=== PATIENT | male | born 1980 | race Hispanic/Latino ===

== ENCOUNTER 2019-12-20 11:29 | Inpatient (IN) | payer OTHER, SELFPAY ==
[~2019-12-20 11:29] MED LIST: Iopamidol 370 76% 100 ML VIAL ONE; Iopamidol 370 76% 50 ML VIAL FS ONE
[2019-12-20 11:54] LABS: #Basophils 0.1 thou/uL (0.0-0.2); #Lymphocytes 1.4 thou/uL (1.20-3.40); #Monocytes 0.6 thou/uL (0.11-0.59); #Neutrophils 13.8 thou/uL (1.40-6.50); %Basophils 0.4 % (0.0-1.0); %Eosinophils 0.2 % (0.0-10.0); %Lymphocytes 8.8 % (21.0-51.0); %Monocytes 3.5 % (0.0-10.0); %Neutrophils 87.1 % (42.0-75.0); Hemoglobin 15.7 g/dL (14.0-18.0); Mean Corpuscular HGB CONC 34.7 g/dL (32.0-36.0); Mean Corpuscular Hemoglobin 30.2 pg (27.0-31.0); Mean Corpuscular Volume 87.1 fL (78.0-98.0); Mean Platelet Volume 9.6 fL (7.4-10.4); Platelet Count 328 thou/uL (130-400); RBC Distribution Width 11.7 % (11.5-14.5); White Blood Cell (WBC) Count 15.9 thou/uL (4.8-10.8)
--- NOTE | 2019-12-20 12:17 | RAD ---
XR Chest 1 View Portable HISTORY: Chest pain COMPARISON: None FINDINGS: The heart size is normal. The lungs are well expanded without focal areas of consolidation, pneumothorax or pleural effusions. IMPRESSION: No radiographic evidence of acute cardiopulmonary process.
[2019-12-20 12:27] LABS: ALT (SGPT) 31 U/L (8-55); AST (SGOT) 17 U/L (5-34); Albumin 4.4 g/dL (3.5-5.0); Alkaline Phosphatase 133 U/L (40-110); Anion Gap 17 mmol/L (10-20); BUN (Urea Nitrogen) 16 mg/dL (8.9-20.6); Bilirubin, Total 0.5 mg/dL (0.2-1.2); Calc. Creatinine Clearance 0 mL/min (70-130); Calcium 9.3 mg/dL (7.8-10.44); Carbon Dioxide 20 mmol/L (22-29); Chloride 100 mmol/L (98-107); Estimated GFR-MDRD 57; Globulin 3.6 g/dL (2.4-3.5); Glucose 533 mg/dL (70-105); Potassium 4.3 mmol/L (3.5-5.1); Sodium 133 mmol/L (136-145)
[2019-12-20] MEDS ORDERED: Ondansetron PF 4 MG/2 ML Vial ONE (12:34)
[2019-12-20 12:43] LABS: CKMB 1.8 ng/mL (0-6.6)
[2019-12-20] MEDS ORDERED: Enoxaparin Sodium 100 MG/ML SYRINGE ONE (13:12)
--- NOTE | 2019-12-20 13:43 | PDOC.FPRHP ---
- History of Present Illness Chief Complaint: chest pain History of Present Illness: This is a 39yo M with no PMH who presents to the ER with a CC of chest pain. He reports that starting this morning around 830am he had an "episode" of chest pain. He was going to try to tough it out but subsequently had 3 more episodes of chest pain. He reports that the chest pain was located in the middle of his chest, pressure like, and radiated to both arms. He reports palpitations, nausea, and headache during the episodes. He also endorses feel warm and sweaty all over. He reports that they did resolve somewhat between episodes and became worse with each episode. He did get nitro by EMS and reports that this improved his pain. He was laying down in the bed of his truck when the first episode of chest pain occurred. 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 He does not regularly see a doctor, but he has gotten his regular physicals for driving a truck and they have always been normal. Recently he injured the tendons in his right foot when a cow stepped on it and is wearing a boot. He did not have surgery at that time. In EMS his BG was found to be 500. He reports no hx of DM. He denies any increased thirst or urination. ED Course: 1L NS and Nitro in EMS. 2L NS and 1mg/kg of lovenox in ED. - Allergies/Adverse Reactions Allergies Allergy/AdvReac Type Severity Reaction Status Date / Time No Known Allergies Allergy Verified 12/20/19 17:02 - Home Medications Medication Instructions Recorded Confirmed Type No Known 12/20/19 12/20/19 History - History PMHx: none PSHx: none FHx: non contributory - no DM or CAD known Social: remote drug and alcohol use; hx of occasional tobacco use; no current drug or alcohol use. - Review of Systems General: reports: fatigue. denies: fever/chills, weight/appetite/sleep changes , night sweats Eyes: denies: vision changes ENT: denies: nasal congestion, rhinorrhea Respiratory: reports: shortness of breath. denies: cough, congestion, exercise intolerance Cardiovascular: reports: chest pain, palpitation. denies: edema Gastrointestinal: reports: nausea. denies: vomiting, diarrhea, constipation, abdominal pain Genitourinary: denies: polyuria Skin: denies: rashes Musculoskeletal: denies: pain, tenderness, stiffness, swelling Neurological: denies: numbness, syncope, seizure, weakness Psychological: denies: anxiety - Vital signs BP: 118/69 HR: 77 RR: 22 Tmax: 98.6 Pox: 100% on RA Wt: 105kg - Physical Exam Constitutional: NAD, awake, alert and oriented, well developed HEENT: normocephalic and atraumatic, PERRLA, EOMI, no scleral icterus, grossly normal vision, grossly normal hearing, MMM, good dention Neck: supple, FROM, trachea midline, no JVD Chest: no-tender to palpation, no lesions Heart: RRR, normal S1/S2, no murmurs/rubs/gallops, pulses present, no edema Lungs: CTAB, no respiratory distress, good air movement, no rales/rhonchi, no wheezing, no retractions Abdomen: soft, non-tender, bowel sounds present Musculoskeletal: normal structure Neurological: no focal deficit Skin: no rash/lesions, good turgor, capillary refill <2 seconds, other (tattoos present, done in residential) Heme/Lymphatic: no unusual bruising or bleeding Psychiatric: normal mood and affect FMR H&P: Results - Labs Result Diagrams: 12/20/19 11:43 12/20/19 11:43 Lab results: WBC 15.9 thou/uL (4.8-10.8) H 12/20/19 11:43 Hgb 15.7 g/dL (14.0-18.0) 12/20/19 11:43 Hct 45.3 % (42.0-52.0) 12/20/19 11:43 MCV 87.1 fL (78.0-98.0) 12/20/19 11:43 Plt Count 328 thou/uL (130-400) 12/20/19 11:43 Neutrophils % 87.1 % (42.0-75.0) H 12/20/19 11:43 Sodium 133 mmol/L (136-145) L 12/20/19 11:43 Potassium 4.3 mmol/L (3.5-5.1) 12/20/19 11:43 Chloride 100 mmol/L (98-107) 12/20/19 11:43 Carbon Dioxide 20 mmol/L (22-29) L 12/20/19 11:43 BUN 16 mg/dL (8.9-20.6) 12/20/19 11:43 Creatinine 1.37 mg/dL (0.7-1.3) H 12/20/19 11:43 Glucose 533 mg/dL (70-105) H 12/20/19 11:43 Calcium 9.3 mg/dL (7.8-10.44) 12/20/19 11:43 Total Bilirubin 0.5 mg/dL (0.2-1.2) 12/20/19 11:43 AST 17 U/L (5-34) 12/20/19 11:43 ALT 31 U/L (8-55) 12/20/19 11:43 Alkaline Phosphatase 133 U/L (40-110) H 12/20/19 11:43 CK-MB (CK-2) 1.8 ng/mL (0-6.6) 12/20/19 11:43 Serum Total Protein 8.0 g/dL (6.0-8.3) 12/20/19 11:43 Albumin 4.4 g/dL (3.5-5.0) 12/20/19 11:43 - EKG Interpretation EK, with no ectopics, Conduction normal, T waves normal, [place] normal, Slight ST depressions in leads V4 through V6. - Radiology Interpretation Chest x-ray Status: report reviewed by me (normal) Additional comment: No acute findings FMR H&P: A/P - Problem List (1) NSTEMI (non-ST elevated myocardial infarction) Current Visit: Yes Status: Acute Code(s): I21.4 - NON-ST ELEVATION (NSTEMI) MYOCARDIAL INFARCTION (2) Diabetes Current Visit: Yes Status: Acute Code(s): E11.9 - TYPE 2 DIABETES MELLITUS WITHOUT COMPLICATIONS - Plan NSTEMI Initial Trop 0.184. CXR with no acute findings. EKG with ST segment depression in V4-V6. - Will continue to trend troponin - Cardiology consulted, appreciate recs. Will give 1in Nitro paste and make NPO at midnight - Lovenox 1mg/kg in ED, continue therapeutic dosing - Admit to tele for continuous monitoring New Dx of Diabetes Initial BG 533. Anion gap 13. B-hydroxybuterate neg. - A1c 7.9 - Will give 10u insulin and continue to monitor BS q2hr until BS 200s - Start metformin after cath - DM education, patient will need close outpatient f/u Dispo: admit to tele, inpatient IVF: LR @ 140ml/hr PPX: th lovenox PCP: Connie Case discussed with Dr. Marcelo FMR H&P: Upper Level - Plan Date/Time: 12/20/19 1343 I, [], have evaluated this patient and agree with findings/plan as outlined by industrial design intern resident. Pertinent changes/additions are listed here. Addendum - Attending - Attending Attestation Date/Time: 12/20/19 3720 I personally evaluated the patient and discussed the management with Dr. Browne I agree with the History, Examination, Assessment and Plan documented above with any addition or exceptions noted below. Seen s/p cath. Per report, no diseased vessels noted. Patient states CP improving. Will continue cardiac evaluation with TTE and risk stratification. continue DM management and education. Dx NSTEMI, DM2, excessive tattoos. Inpatient, tele, >2 midnights.
[2019-12-20 14:06] LABS: Hemoglobin A1c 7.9 % (4.0-6.0)
[2019-12-20] MEDS ORDERED: Insulin Glargine 10 UNITS in Pre-Filled Syringe 1 EACH SC SCH (14:30)
[2019-12-20] MEDS ORDERED: Acetaminophen 650 MG Suppository PR PRN (14:43)
[2019-12-20] MEDS ORDERED: Dextrose 50% Abboject 50 ML SYRINGE SLOW IVP PRN (14:43)
[2019-12-20] MEDS ORDERED: Acetaminophen 325 MG TAB PO PRN (14:43)
[2019-12-20] MEDS ORDERED: Nitroglycerin 0.4 MG TAB (25 Tab Bottle) PO PRN (14:43)
[2019-12-20] MEDS ORDERED: Dextrose 5% in Water 1,000 ML IV PRN (14:43)
[2019-12-20] MEDS ORDERED: Ondansetron PF 4 MG/2 ML Vial IVP PRN (14:43)
[2019-12-20] MEDS ORDERED: Ondansetron ODT 4 MG TAB PO PRN (14:43)
[2019-12-20] MEDS ORDERED: hydrALAZINE 20 MG/ML VIAL SLOW IVP PRN (14:47)
[2019-12-20] MEDS ORDERED: Lactated Ringer's 1,000 ML IV SCH (15:15)
[2019-12-20 15:17] LABS: Troponin I 1.237 ng/mL (< 0.028)
[2019-12-20 16:03] LABS: Hep C IgG Ab Non-Reactive (NonReactive); Hep C Index 0.17 S/CO (0-0.79)
[2019-12-20] MEDS ORDERED: Verapamil 5 MG/2 ML VIAL ONE (16:16)
[2019-12-20] MEDS ORDERED: Heparin 10,000 UNITS/1 ML VIAL ONE (16:16)
[2019-12-20] MEDS ORDERED: Nitroglycerin 100MG/250ML BOT 250 ML ONE (16:16)
[2019-12-20] MEDS ORDERED: Acetaminophen/Codeine 30-300mg Tablet PO PRN ×2 (16:57)
[2019-12-20] MEDS ORDERED: Sodium Chloride 0.9% 200 ML IV PRN (16:57)
[2019-12-20] MEDS ORDERED: Nitroglycerin 0.4 MG TAB (25 Tab Bottle) SL PRN (16:57)
[2019-12-20] MEDS: Sodium Chloride 0.9% 1,000 ML IV SCH ×2 (17:37→21:08)
[2019-12-20] MEDS: HumaLOG 300 UNITS/3 ML VIAL SC PRN ×2 (17:54→21:08)
--- NOTE | 2019-12-20 18:03 | CON ---
DATE OF CONSULTATION: REASON FOR CONSULTATION: Elevated troponin and unstable angina. HISTORY OF PRESENT ILLNESS: Mr. Stuart is a 39-year-old gentleman, who is from [place]. He is a water truck driver in passing through. He recently presented with acute onset chest pain. It began at 8:30 this morning. The pain now waxed and waned. He had associated nausea in addition to diaphoresis. He presented to the emergency room with the above. Troponin was mildly elevated. EKG did show ST-T wave changes suggesting ischemia. No ST-T wave changes suggesting infarction. Upon my arrival, he continued to have mild pain estimated at 2 to 3/10. PAST MEDICAL HISTORY: New onset diabetes mellitus. Otherwise, none. FAMILY HISTORY: None. SOCIAL HISTORY: No current tobacco or alcohol use. REVIEW OF SYSTEMS: A 10-point review of systems is reviewed as above, otherwise negative. ALLERGIES: NONE. HOME MEDICATIONS: None. PHYSICAL EXAMINATION: GENERAL: Patient is a pleasant male, who is in no acute distress. The patient appears his stated age. VITAL SIGNS: Blood pressure 130/70, pulse 80, respirations 20. NEUROLOGIC: The patient is alert and oriented x3 with no focal neurologic deficits. HEENT: Sclerae without icterus. Mouth has moist mucous membranes with normal pallor. NECK: No JVD. Carotid upstroke brisk. No bruits bilaterally. LUNGS: Clear to auscultation with unlabored respirations. BACK: No scoliosis or kyphosis. CARDIAC: Regular rate and rhythm with normal S1 and S2. No S3 or S4 noted. No significant rubs, murmurs, thrills, or gallops noted throughout the precordium. PMI is not displaced. There is no parasternal heave. ABDOMEN: Soft, nontender, nondistended. No peritoneal signs present. No hepatosplenomegaly. No abnormal striae. EXTREMITIES: 2+ femoral and 2+ dorsalis pedis pulses. No cyanosis, clubbing, or edema. SKIN: No gross abnormalities. DIAGNOSTIC STUDIES: EKG shows normal sinus rhythm with ST-T wave changes suggesting ischemia. LABORATORY DATA: Hemoglobin 15.7. Peak troponin 1.2, CK-MB 1.8. IMPRESSION: 1. Unstable angina. 2. New onset diabetes. RECOMMENDATIONS: Mr. Stuart has received sublingual nitroglycerin in addition to nitroglycerin paste and Lovenox. Given that he continues to have pain, we recommend coronary angiography possible PCI. I discussed the procedure in full detail with Mr. Stuart. The risks of the procedure were also discussed. The risks of the procedure include but are not limited to the following: , stroke, CO, need for emergency surgery, loss of limb, bleeding, and infection, as well as a reaction to the dye causing kidney failure and needing long-term dialysis. I also discussed the risks of PCI to include all of the above including coronary dissection and perforation in addition to acute stent thrombosis and restenosis. All questions about the procedure were answered. Given the above, the patient agreed to proceed with coronary angiography and possible PCI. All questions were answered. I also discussed drug coated versus nondrug coated stent placement. There were no contraindications. We will proceed if needed. Further recommendations pending the above. Job ID: [id number]
[2019-12-20 18:21] VITALS: BMI 31.1
[2019-12-20 18:45] LABS: Troponin I 2.044 ng/mL (< 0.028)
[2019-12-20] MEDS ORDERED: Enoxaparin Sodium 100 MG/ML SYRINGE SC SCH (21:00)
[2019-12-20] MEDS ORDERED: Nitroglycerin 2% Ointment 1 INCH/1 GM Packet TOP SCH (21:00)
[2019-12-21 04:59] LABS: #Basophils 0.1 thou/uL (0.0-0.2); #Eosinphils 0.1 thou/uL (0.0-0.7); #Lymphocytes 3.1 thou/uL (1.20-3.40); #Monocytes 0.8 thou/uL (0.11-0.59); #Neutrophils 8.4 thou/uL (1.40-6.50); %Basophils 0.7 % (0.0-1.0); %Lymphocytes 24.7 % (21.0-51.0); %Neutrophils 67.7 % (42.0-75.0); Hemoglobin 14.1 g/dL (14.0-18.0); Mean Corpuscular HGB CONC 32.6 g/dL (32.0-36.0); Mean Corpuscular Volume 88.9 fL (78.0-98.0); Mean Platelet Volume 9.7 fL (7.4-10.4); Platelet Count 323 thou/uL (130-400); RBC Distribution Width 12.1 % (11.5-14.5); Red Blood Cell (RBC) Count 4.88 mill/uL (4.70-6.10); White Blood Cell (WBC) Count 12.5 thou/uL (4.8-10.8)
[2019-12-21 05:28] LABS: Anion Gap 14 mmol/L (10-20); BUN (Urea Nitrogen) 14 mg/dL (8.9-20.6); Calc. Creatinine Clearance 155 mL/min (70-130); Calcium 8.7 mg/dL (7.8-10.44); Carbon Dioxide 25 mmol/L (22-29); Chloride 101 mmol/L (98-107); Cholesterol 269 mg/dl (< 200 Desired); Estimated GFR-MDRD 87; Glucose 257 mg/dL (70-105); HDL Cholesterol 45 mg/dL (>60 Neg Risk); LDL Cholesterol, Calculated 188 mg/dL; Potassium 3.7 mmol/L (3.5-5.1); Sodium 136 mmol/L (136-145); Triglycerides 179 mg/dL (Less than 150)
[2019-12-21] MEDS: HumaLOG 300 UNITS/3 ML VIAL SC PRN ×4 (06:02→21:11)
--- NOTE | 2019-12-21 06:08 | PDOC.FM ---
- Subjective Subjective: Patient endorses persistent 2/10 chest pain that feels "sore". The pain is midsternal, nonradiating, worse with deep inspiration, and different than the pain he was having during the attacks yesterday. He denies SOB/dyspnea. He also endorses 4/10 abdominal pain that "feels like I was kicked in the balls". The pain is bilateral, nonradiating, and dull. He denies NVD and difficulty with urination. Patient has a lot of questions about his new diagnoses and current prognoses. - Objective Vital Signs & Weight: Vital Signs (12 hours) Temp Pulse Resp BP BP Pulse Ox 12/21/19 03:13 98.5 F 77 18 121/78 98 12/20/19 20:00 98.1 F 86 17 92/53 L 95 12/20/19 19:30 97 12/20/19 19:26 81 16 103/53 L Weight Weight 106.957 kg I&O: 12/19/19 12/20/19 12/21/19 06:59 06:59 06:59 Intake Total 1300 Output Total 100 Balance 1200 Result Diagrams: 12/21/19 04:07 12/21/19 04:07 Phys Exam - Physical Examination Constitutional: NAD Appears anxious, sitting up on edge of bed HEENT: moist MMs, sclera anicteric Neck: no nodes, no JVD Respiratory: no wheezing, no rales, clear to auscultation bilateral Cardiovascular: RRR, no significant murmur, no rub Gastrointestinal: soft, no distention, positive bowel sounds diffuse mild tenderness to palpation Musculoskeletal: no edema, pulses present Neurological: moves all 4 limbs Psychiatric: normal affect, A&O x 3 Skin: no rash Deviation from normal: Many tattoos Dx/Plan - Plan Plan: NSTEMI Initial Trop 0.184 -> 2.044 CXR with no acute findings. EKG with ST segment depression in V4-V6. 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 Marcelo Addendum - Attending - Attending Attestation Date/Time: 12/21/19 3558 I personally evaluated the patient and discussed the management with Dr. Winn I agree with the History, Examination, Assessment and Plan documented above with any addition or exceptions noted below - Patient feeling better; has some chest "soreness". Afebrile BP 174/104 A/P: 1) NSTEMI- s/p cath- normal coronaries; continue current meds. 2) HTN- will start on medications and adjust as needed. 3) Newly diagnosed DM- started on metformin; continue to monitor.
[2019-12-21] MEDS ORDERED: Aspirin 325 mg Enteric Coated Tablet PO SCH (09:00)
[2019-12-21] MEDS ORDERED: Insulin Glargine 10 UNITS in Pre-Filled Syringe 1 EACH SC SCH (09:00)
[2019-12-21] MEDS: metFORMIN 500 MG TAB PO SCH ×2 (09:05→17:12)
[2019-12-21 09:41] LABS: Amphetamine Not Detected (NotDetected); Barbiturates Screen Not Detected (NotDetected); Benzodiazepine Screen Not Detected (NotDetected); Cocaine Metabolite Screen Not Detected (NotDetected); Medtox Control Line Valid? VALID (VALID); Medtox Reader # READER 1; Methadone Not Detected (NotDetected); Methamphetamine Not Detected (NotDetected); Opiate Screen Not Detected (NotDetected); Oxycodone Screen Not Detected (NotDetected); Phencyclidine (PCP) Not Detected (NotDetected); THC/Cannabinoid Screen Not Detected (NotDetected); Tricyclic Screen Not Detected (NotDetected)
[2019-12-21] MEDS: Carvedilol 3.125 MG TAB PO SCH (15:30)
[2019-12-21] MEDS ORDERED: hydrOXYzine 10 MG TAB PO PRN (16:18)
[2019-12-21 20:07] LABS: CKMB 4.8 ng/mL (0-6.6)
[2019-12-21] MEDS ORDERED: Atorvastatin Calcium 40 MG TAB PO SCH (21:00)
[2019-12-22 05:15] VITALS: TEMP 98.2
[2019-12-22] MEDS: HumaLOG 300 UNITS/3 ML VIAL SC PRN ×3 (06:00→17:07)
--- NOTE | 2019-12-22 06:07 | PDOC.FM ---
- Objective Vital Signs & Weight: Vital Signs (12 hours) Temp Pulse Resp BP Pulse Ox 12/22/19 04:00 98.2 F 102 H 16 124/76 97 12/21/19 23:25 117/67 12/21/19 20:00 98.3 F 104 H 16 133/88 98 Weight Weight 106.957 kg I&O: 12/20/19 12/21/19 12/22/19 06:59 06:59 06:59 Intake Total 1300 2240 Output Total 100 1800 Balance 1200 440 Result Diagrams: 12/21/19 04:07 12/21/19 04:07 Dx/Plan - Plan Plan: NSTEMI Initial Trop 0.184 -> 2.044 CXR with no acute findings. EKG with ST segment depression in V4-V6. 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 Case discussed with Dr. Marcelo Addendum - Attending - Attending Attestation Date/Time: 12/22/19 4211 I personally evaluated the patient and discussed the management with Dr. Winn I agree with the History, Examination, Assessment and Plan documented above with any addition or exceptions noted below - Patient without complaints. Pain decreased and feeling better. Afebrile VSS. A/P: 1) Elevated troponin unknown etiology - downtrending; appreciate cardiology assistance. 2) DM - newly diagnosed- continue current meds and titrate as outpatient, 3) HTN- continue carvedilol, ASA; urine collection for metanephrines and catecholamines in progress, 4) RLQ masses on renal USG- unable to fully characterize; consider CT abd/pelvis.
--- NOTE | 2019-12-22 07:14 | ULT ---
BILATERAL RENAL ULTRASOUND WITH DOPPLER: Date: 12/22/2019 PROVIDED CLINICAL HISTORY: New onset hypertension. FINDINGS: The right kidney measures about 11.8 x 5.4 x 5.2 cm and demonstrates no evidence for hydronephrosis, sonographically apparent calculus or mass. The left kidney measures about 12.5 x 6.0 x 5.3 cm and demonstrates no evidence for hydronephrosis, s onographically apparent calculus or mass. The urinary bladder is decompressed and not well evaluated. Circumscribed foci of mass-like altered e chogenicity are seen within the right lower quadrant, largest of which measures about 4.5 cm. Incompl etely evaluated and incompletely characterized on the basis of this study. Color Doppler and spectral analysis of the aortic and renal waveforms was performed. There is no evid ence for renal artery stenosis. Resistive indices are normal. IMPRESSION: 1. No evidence for hydronephrosis. 2. No sonographic evidence for renal artery stenosis. 3. Right lower quadrant masses, incompletely characterized. Correlation with CT abdomen and pelvis r ecommended with IV contrast. POS: JUICE
[2019-12-22 07:33] LABS: CKMB 2.3 ng/mL (0-6.6)
[2019-12-22 07:37] LABS: Troponin I 0.353 ng/mL (< 0.028)
--- NOTE | 2019-12-22 08:25 | PRG ---
DATE OF SERVICE: 12/22/2019 SUBJECTIVE: Mr. Stuart is doing better, although still complains of mild chest pain. It is better than it was one day prior. He also complains of groin pain. Coronary angiography was performed through the right radial area and not to the groin. His CK-MB and troponin are trending down. OBJECTIVE: VITAL SIGNS: Blood pressure 124/76, pulse 102, temperature 98.2. LUNGS: Clear to auscultation. HEART: Tachycardic. ABDOMEN: Soft, nontender, nondistended. EXTREMITIES: No edema. IMPRESSION: 1. Elevated troponin. 2. New onset diabetes. RECOMMENDATIONS: Etiology of elevated troponin is unknown. Differential diagnosis includes coronary spasm, mild myocarditis in addition to pericarditis or ischemia due to a small vessel coronary artery disease. He did have a small vessel noted in the distal LAD, circumflex artery and right coronary artery. Other rare etiologies would include embolization from underlying atrial fibrillation to coronary artery. At this point, we will continue supportive care. We will recheck his CK-MB and troponin in a.m. We will also recommend CT scan of his chest to assess for PE. Otherwise, I have no further recommendations. Job ID: [id number]
[2019-12-22] MEDS ORDERED: Carvedilol 6.25 MG TAB PO SCH ×2 (09:00→17:00)
[2019-12-22] MEDS ORDERED: Insulin Glargine 25 UNITS in Pre-Filled Syringe 1 EACH SC SCH (09:00)
[2019-12-22] MEDS ORDERED: Aspirin 325 mg Enteric Coated Tablet PO SCH (09:00)
[2019-12-22] MEDS ORDERED: Lisinopril 10 MG TAB PO SCH (09:00)
[2019-12-22] MEDS ORDERED: Aspirin 81 mg Enteric Coated Tablet PO SCH (09:00)
[2019-12-22] MEDS: Carvedilol 3.125 MG TAB PO SCH (09:01)
[2019-12-22] MEDS: metFORMIN 500 MG TAB PO SCH ×2 (09:02→17:07)
--- NOTE | 2019-12-22 09:07 | PRG ---
DATE OF SERVICE: 12/22/2019 SUBJECTIVE: Mr. Stuart is doing better. No current complaints. OBJECTIVE: VITAL SIGNS: Blood pressure 120/76, pulse 102, temperature 98.2. LUNGS: Clear to auscultation. HEART: Regular rate and rhythm. ABDOMEN: Soft, nontender, nondistended. EXTREMITIES: No edema. IMPRESSION: 1. Chest pain. 2. Elevated troponin. RECOMMENDATIONS: 1. We will review CT scan to assess for PE. 2. CK, troponin continued to trend down. If this is consistent with mild myocarditis, the patient would treat it symptomatically. His overall LVEF does appear mildly diminished and likely to improve. He did have small vessel coronary artery disease. We would recommend continued carvedilol. We will increase to 6.25 mg one p.o. b.i.d. Continue atorvastatin. Decrease aspirin 81 q.a.m. Otherwise, the CT scan is negative. He will be okay from my standpoint to discharge home with close outpatient followup. Job ID: [id number]
--- NOTE | 2019-12-22 09:15 | CT ---
CT PULMONARY ANGIOGRAM WITH IV CONTRAST AND 3D MIP RECONSTRUCTIONS: Date: 12/22/2019 PROVIDED CLINICAL HISTORY: Chest pain. FINDINGS: The heart, pericardium, and great vessels demonstrate an unremarkable CT appearance. There is no evid ence for central or segmental pulmonary embolus. No evidence for thoracic lymph node enlargement. The airway appears patent and of normal caliber. No pleural fluid or pneumothorax apparent. The lungs ar e free of significant opacity. The visualized portions of the upper abdomen demonstrate no significan t abnormality. The osseous structures demonstrate no concerning lytic or blastic lesions. IMPRESSION: No evidence for central or segmental pulmonary embolus. POS: JUICE
[2019-12-22] MEDS ORDERED: Iopamidol-370 76% 500 ML 1 ML ONE (11:42)
[2019-12-22 16:17] VITALS: BP 104/62
--- NOTE | 2019-12-25 07:32 | DIS ---
DATE OF ADMISSION: 12/20/2019 DATE OF DISCHARGE: 12/22/2019 ADMITTING ATTENDING: Mariia Marcelo MD DISCHARGE ATTENDING: Mariia Marcelo MD CONSULTS: Cardiology, Dr. Strauss. PROCEDURES: Cardiac cath done on 12/20 showing no coronary vessel disease. Renal ultrasound done on 12/22/2019 showing no abnormalities with the kidneys or bladder, but a collection of masses in the right lower quadrant that were otherwise non-characterized. CTA of the chest showing no pulmonary embolism. Echocardiogram showing EF of 40% to 45%. PRIMARY DIAGNOSIS: [id number] myocardial infarction. SECONDARY DIAGNOSES: Diabetes type 2 and hyperlipidemia. DISCHARGE MEDICATIONS: 1. Aspirin 81 mg p.o. daily. 2. Acetaminophen/Codeine No.3 300 mg/30 mg tablet 2 tablets. 3. Atorvastatin 40 mg tablet p.o. daily 30 days. 4. Carvedilol 6.25 mg tablets p.o. b.i.d. 30 days. 5. Lisinopril 10 mg p.o. daily 30 days. 6. Metformin 1000 mg p.o. b.i.d. with meals 30 days. 7. Glipizide 5 mg p.o. daily for 30 days. HISTORY OF PRESENT ILLNESS/HOSPITAL COURSE: The patient is a 39-year-old male with no past medical history, who presented to the ER with chief complaint of chest pain. He reported that the pain started that morning around 8.30, where he had an episode of chest pain. He then went on to have 3 more episodes of similar chest pain and reports that the chest pain was located in the middle of his chest, pressure like, and radiated to both arms. He also reported palpitation with nausea, headaches, and diaphoresis all over. He reports that between the episodes he did have some relief, but the pain became worse with each episode. EMS was called by a [place] police lieutenant that witnessed the attacks. In EMS he did get nitroglycerin which improved his pain. The episodes started while laying in the back of his truck. 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 He does not regularly see a doctor , but does have to get yearly physicals and they have always been normal. In the ambulance, his blood glucose was found to be 500. He reports no history of diabetes and he denied any increased thirst or urination. In the EMS, the patient also got 1 L of normal saline. In the ED, the patient got 2 L of normal saline and 1 mg/ kg of Lovenox and patient's vital signs were stable. The patient received 10 units of Lantus. In the ED, the patient had positive troponin with ST depression in V4 through V6 on EKG. The patient did not have an anion gap, bicarb was not low; therefore was not DKA. The patient had leukocytosis up to 15.9 and was hyponatremic to 133. Troponin was initially 0.184, then trended up to 1.237, again trended up to 2.044 within 8 hours. The patient was taken to the cardiac cath after examination by Cardiology. Cardiac cath showed no evidence of coronary artery disease. On day 2 of the patient's hospital stay, the patient had new onset hypertension with systolics into the 170s to 180s, diastolics into the low 100s to 110s. The patent got an echo that showed an ejection fraction of 40% to 45% with inferior wall abnormalities and left atrial dilation. The patient was started on Coreg 6.25 mg b.i.d. On day 3 of hospitalization, the patient was started on lisinopril 10 mg p.o. daily. The patient received renal ultrasound due to hypertension, which showed no evidence of abnormalities in either kidney or the bladder, however, it did find "circumscribed foci of mass-like altered echogenicity are seen within the right lower quadrant, largest of which measures about 4.5 cm, incompletely characterized on the basis of this study." The patient also received a CT PE that was negative after d-dimer returned positive at 0.64. The patient completed 24-hour urine collection for metanephrine level, which was not resulted by the time the patient was discharged. Rapid COVID swab was negative. DISPOSITION: Stable. DISCHARGE INSTRUCTIONS: Location: Home. Diet: Heart healthy. Activity: As tolerated. Instructed the patient to take it easy until followup with machine applicator cementer. Instructed the patient to not overexert himself until he was able to be seen in follow up. FOLLOWUP: The patient has appointment with a machine applicator cementer in [place] on Wednesday, December 26. The patient was also setup with a PCP that he should follow up within 1 week. The patient was instructed that the masses found on ultrasound should be followed up with by CTA per Radiology recommendations. Job ID: [id number] [id number]
--- NOTE | 2019-12-25 07:52 | PQF ---
ZACK Santiago MD [id number] CLINICAL DOCUMENTATION CLARIFICATION FORM: POST DISCHARGE Addendum to original discharge summary date: ____ Late entry note date: __ DATE: 12/25/2019 ATTN:Zack Marcelo Please exercise your independent, professional judgment in responding to the clarification form. Clinical indicators are provided on the bottom of this form for your review Please check appropriate box(s): [ ] NSTEMI [ ] Acute Systolic CHF [ ] unstable angina [ ] Other diagnosis [ ] Unable to determine For continuity of documentation, please document condition throughout progress notes and discharge summary. Thank You. 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 All Rights Reserved [email or web address]
--- NOTE | 2019-12-25 07:58 | PQF ---
ZACK Santiago MD [id number] CLINICAL DOCUMENTATION CLARIFICATION FORM: POST DISCHARGE Addendum to original discharge summary date: ____ Late entry note date: __ DATE: 12/25/2019 ATTN:Zack Marcelo Please exercise your independent, professional judgment in responding to the clarification form. Clinical indicators are provided on the bottom of this form for your review Please check appropriate box(s): Conflicting documentation was noted in the Medical Record, please clarify if patient is being treated/monitored for: [ ] NSTEMI Please specify type of NSTEMI [ ] NSTEMI (DE type I) [ ] NSTEMI due to Demand Ischemia (AMI Type II) [ ] Elevated troponin [ ] Other diagnosis [ ] Unable to determine For continuity of documentation, please document condition throughout progress notes and discharge summary. Thank You. CLINICAL INDICATORS - SIGNS / SYMPTOMS/ LABS HP 12/19 "CC:chest pain" HP 12/19 "He reports that the chest pain was located in the middle of his chest , pressure like and radiated to both arms" HP 12/19 "EKG:slight ST depressions" HP 12/19 "NSTEMI" Consult 12/19 "troponin was mildly elevated" Consult 12/19 "EKG did show ST-T wave changes suggesting ischemia" Consult 12/19 "no ST-T wave changes suggesting infarction" PN 12/21 "elevated troponin unknown etiology" Labs Troponin: 12/19=1.237 12/20=0.730 12/21=0.353 RISK FACTORS DM-HP 12/19 Unstable angina-Consult 12/19 HTN-PN 12/20 Acute HFrEF-PN 12/21 TREATMENT IVF-HP 12/19 EKG-HP 12/19 [facility]-[employer] 12/19 Nitroglycerin 0.4mg Oral-AUG 24 (This form is maintained as a part of the permanent medical record) 2014 [employer] All Rights Reserved [email or web address]
[2019-12-31 08:13] LABS: Metanephrine,Ur 55 ug/L (Undefined); Metanephrines Total-24H 116 ug/24 hr (58-276); Normetanephrine,Ur 4296 ug/L (Undefined); Normetanephrines-24H U 9022 ug/24 hr (156-729)
== END 2019-12-22 18:40 | disposition home or self-care (01) | DRG 280 ==
LOC: ERS 11:29 → 2NO 13:57
PROVIDERS: ADMIT Family Medicine; ATTEND Family Medicine
PROC: 4A023N7 Measurement of Cardiac Sampling and Pressure, Left Heart, Percutaneous Approach (ICD-10-PCS; principal; 2019-12-20)
PROC: B2111ZZ Fluoroscopy of Multiple Coronary Arteries using Low Osmolar Contrast (ICD-10-PCS; 2019-12-20)
PROC: B2151ZZ Fluoroscopy of Left Heart using Low Osmolar Contrast (ICD-10-PCS; 2019-12-20)
PROC: 4A033BC Measurement of Arterial Pressure, Coronary, Percutaneous Approach (ICD-10-PCS; 2019-12-20)
DX: I21.4 Non-ST elevation (NSTEMI) myocardial infarction (principal); I50.21 Acute systolic (congestive) heart failure; N17.9 Acute kidney failure, unspecified; E87.1 Hypo-osmolality and hyponatremia; I20.0 Unstable angina; E11.9 Type 2 diabetes mellitus without complications; F17.200 Nicotine dependence, unspecified, uncomplicated; I11.0 Hypertensive heart disease with heart failure
CPT/HCPCS: 36415; 36416; 71045; 71275; 76770; 80048; 80053; 80061; 80306; 82010; 82553; 82728; 83036; 83835; 83880; 84484; 85025; 85379; 86140; 86803; 93005; 93306; 93458; 93975; 93976; 94760; 96361; 96372; 96374; J1644; J1650; J1815; J2405; Q9967; U0002